=== PATIENT | female | born 1960 | race Caucasian/White ===

== ENCOUNTER 2016-09-15 11:27 | Emergency (ER) | payer MEDICAID ==
[2016-09-15] MEDS ORDERED: DEXAMETHASONE 10 MG/ML VIAL PO STA (12:14)
[2016-09-15] MEDS ORDERED: HYDROcod/ACETAM 5/325 MG TABLET PO STA (12:14)
[2016-09-15] MEDS ORDERED: METHOCARBAMOL 500 MG TABLET PO STA (12:14)
[2016-09-15] MEDS ORDERED: CHERRY SYRUP 10 ML UDC PO ONE (12:19)
[2016-09-15] MEDS ORDERED: HYDROcod/ACETAM 5/325 MG TABLET ONE (12:19)
[2016-09-15] MEDS ORDERED: METHOCARBAMOL 500 MG TABLET PO ONE (12:19)
[2016-09-15] MEDS ORDERED: DEXAMETHASONE 10 MG/ML VIAL ONE (12:20)
== END 2016-09-15 12:38 | disposition home or self-care (01) ==
DX: M54.5 Low back pain (principal); G89.29 Other chronic pain; F17.200 Nicotine dependence, unspecified, uncomplicated
CPT/HCPCS: 99283; A9270

== ENCOUNTER 2016-12-15 13:13 | Emergency (ER) | payer MEDICAID ==
[2016-12-15] MEDS ORDERED: KETOROLAC 60 MG/2 ML VIAL IM STA (13:37)
--- NOTE | 2016-12-15 13:40 | ED Physician Documentation ---
PD HPI BACK INJURY - Stated complaint Stated Complaint: BACK PAIN - History obtained from History obtained from: Patient - History of Present Illness Type of injury: Other (She has chronic unchanged back pain in the lower lumbar spine radiating to the right and down the back of the right leg. She is on disability because of it. She is in the process of switching doctors, because "were not getting along." She is out of her pain medication, she was taking Vicodin a few times a day. She requests a prescription for same until she can see her new doctor in 6 days. There is no weakness or numbness but she does have tingling down the lateral side of the right leg which is not new, no saddle anesthesia or fevers.) Review of Systems Constitutional: reports: Fatigue (From poor sleep). 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 - Present Medications Home Medications: Ambulatory Orders Medication Instructions Recorded Confirmed Pantoprazole [Protonix] 40 mg PO DAILY 07/03/15 12/15/16 Albuterol Sulfate [Proair Hfa 0 mg INH .FREQ 09/15/16 12/15/16 Inhaler] Hydrocodone/Acetaminophen [[place] 1 each PO TID #25 tablet 09/15/16 12/15/16 10-325 Tablet] PARoxetine [Paxil] 0 mg PO .FREQ 09/15/16 12/15/16 Beclomethasone 40 Mcg [Qvar 40] 1 puffs PO DAILY 12/15/16 12/15/16 Cyclobenzaprine [Flexeril] 10 mg PO TID PRN #20 tablet 12/15/16 Meloxicam [Mobic] 7.5 mg PO BIDWM PRN #15 tablet 12/15/16 - Allergies Allergies/Adverse Reactions: Allergies Allergy/AdvReac Type Severity Reaction Status Date / Time oxycodone AdvReac Nausea Verified 09/15/16 11:32 - Social History Does the pt smoke?: Yes Smoking Status: Current every day smoker Does the pt drink ETOH?: No Does the pt have substance abuse?: No PD ED PE NORMAL - Vitals Vital signs reviewed: Yes - General General: Alert and oriented X 3, No acute distress - Back Back: No CVA TTP, No spinal TTP - Extremities Extremities: Other (She has diminished sensation in the right L5 distribution associated with a diminished Achilles reflex there, but symmetric and normal patellar reflexes.) - Neuro Neuro: Alert and oriented X 3, Normal speech Results - Vitals Vitals: Vital Signs - 24 hr 12/15/16 13:14 Temperature 36.9 C Heart Rate 99 Respiratory 18 Rate Blood Pressure 123/75 O2 Saturation 96 Oxygen O2 Source Room air PD MEDICAL DECISION MAKING - ED course ED course: 56-year-old woman with chronic back pain presents for a refill as she is between doctors. She was in pain management with a controlled substance agreement from her prior provider. Discussed with her that it is not appropriate for the emergency department to refill or distribute narcotics for chronic pain. She was administered Toradol here. The patient has no "red flags." Specifically denies IV drug use, fevers, incontinence, saddle anesthesia. Spinal epidural abscess was considered, given that the patient has no fever, is not diabetic, has no spinal tenderness, does not use IV drugs, and has no bilateral neurologic symptoms, the diagnosis of spinal epidural abscess is considered exceedingly unlikely. Departure - Departure Disposition: 01 Home, Self Care Clinical Impression: Chronic low back pain Qualifiers: Back pain laterality: right Sciatica presence: with sciatica Sciatica laterality: sciatica of right side Qualified Code(s): M54.41 - Lumbago with sciatica, right side; G89.29 - Other chronic pain Condition: Good Record reviewed to determine appropriate education?: Yes Instructions: ED Low Back Pain Injury Prescriptions: Cyclobenzaprine [Flexeril] 10 mg PO TID PRN #20 tablet PRN Reason: Pain Meloxicam [Mobic] 7.5 mg PO BIDWM PRN #15 tablet PRN Reason: Pain Comments: It is not appropriate for the Emergency Dept to treat chronic pain with narcotic pain medications. I encourage you to follow up with your primary care physician or to establish care with a primary care physician for ongoing pain management. You are always welcome to seek emergency care here for this or new issues but there will likely be limitations in the prescription of narcotic pain medication.
[2016-12-15] MEDS ORDERED: KETOROLAC 60 MG/2 ML VIAL ONE (13:42)
[2016-12-15 14:03] VITALS: BP 111/74
== END 2016-12-15 14:01 | disposition home or self-care (01) ==
LOC: ED 13:13
DX: M54.41 Lumbago with sciatica, right side (principal); G89.29 Other chronic pain; F17.200 Nicotine dependence, unspecified, uncomplicated
CPT/HCPCS: 96372; 99283

== ENCOUNTER 2017-05-30 12:37 | Outpatient (CLI) | payer MEDICAID ==
[2017-05-30 19:04] LABS: ALBUMIN/GLOBULIN RATIO 1.4 (1.0-2.2); BILIRUBIN,TOTAL 0.6 mg/dL (0.2-1.0); BUN - BLOOD UREA NITROGEN 7 mg/dL (6-20); CALCIUM 8.9 mg/dL (8.5-10.3); CARBON DIOXIDE - CO2 23 mmol/L (21-32); CHLORIDE 101 mmol/L (101-111); CHOL/HDL RATIO 5.1 (<4.4); CHOLESTEROL 330 mg/dL; CREATININE 0.8 mg/dL (0.4-1.0); GFR - MDRD 74 (>89); GLUCOSE 83 mg/dL (70-100); HDL CHOLESTEROL 65 mg/dL; LDL/HDL RATIO 3.5 (<4.4); POTASSIUM 3.9 mmol/L (3.5-5.0); SODIUM 133 mmol/L (135-145); TOTAL PROTEIN 7.9 g/dL (6.7-8.2); TRIGLYCERIDES 182 mg/dL; VLDL CHOLESTEROL 36 mg/dL
[2017-05-30 19:25] LABS: BASOPHILS # (AUTO) 0.1 10^3/uL (0.0-0.1); BASOPHILS % (AUTO) 1.1 %; EOSINOPHILS # (AUTO) 0.2 10^3/uL (0.0-0.7); EOSINOPHILS % (AUTO) 2.6 %; HCT - HEMATOCRIT 45.8 % (37.0-47.0); HGB - HEMOGLOBIN 15.7 g/dL (12.0-16.0); LYMPHOCYTES # (AUTO) 2.2 10^3/uL (1.5-3.5); LYMPHOCYTES % (AUTO) 24.3 %; MEAN CORPUSCULAR HEMOGLOBIN 32.1 pg (27.0-31.0); MEAN CORPUSCULAR HGB CONC 34.2 g/dL (32.0-36.0); MEAN PLATELET VOLUME 8.1 fL (7.9-10.8); MONOCYTES # (AUTO) 0.8 10^3/uL (0.0-1.0); MONOCYTES % (AUTO) 8.8 %; NEUTROPHILS # (AUTO) 5.6 10^3/uL (1.5-6.6); NEUTROPHILS % (AUTO) 63.2 %; NUCLEATED RED BLOOD CELLS AUTO 0.1 /100WBC; RED BLOOD COUNT 4.87 10^6/uL (4.20-5.40); RED CELL DISTRIBUTION WIDTH 12.2 % (12.0-15.0); UNCORRECTED WHITE BLOOD COUNT 8.8 x10^3/uL; WHITE BLOOD COUNT 8.8 x10^3/uL (4.8-10.8)
== END 2017-05-30 12:38 | disposition home or self-care (01) ==
LOC: LAB.F 12:37
PROVIDERS: ATTEND Family Medicine
DX: D53.1 Other megaloblastic anemias, not elsewhere classified (principal); Z13.220 Encounter for screening for lipoid disorders; K21.9 Gastro-esophageal reflux disease without esophagitis
CPT/HCPCS: 36415; 80053; 80061; 82306; 84443; 85025

== ENCOUNTER 2018-02-08 12:28 | Outpatient (CLI) | payer MEDICARE ==
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
== END 2018-02-08 12:29 | disposition home or self-care (01) ==
LOC: DI 12:28
PROVIDERS: ATTEND Internal Medicine
DX: M79.672 Pain in left foot (principal)

== ENCOUNTER 2018-07-06 14:01 | Outpatient (CLI) | payer MEDICARE | END 2018-07-06 14:02 | disposition short-term general hospital (02) | LOC: EMS 14:01 | PROVIDERS: ATTEND Surgery | DX: R10.10 Upper abdominal pain, unspecified (principal); R19.7 Diarrhea, unspecified; R42 Dizziness and giddiness; R53.1 Weakness | CPT/HCPCS: A0170; A0425; A0429 ==

== ENCOUNTER 2018-07-08 14:34 | Outpatient (CLI) | payer MEDICARE | END 2018-07-08 14:35 | disposition critical access hospital (66) | LOC: EMS 14:34 | PROVIDERS: ATTEND Surgery | DX: S31.103A Unspecified open wound of abdominal wall, right lower quadrant without penetration into peritoneal cavity, initial encounter (principal); S11.91XA Laceration without foreign body of unspecified part of neck, initial encounter; W26.0XXA Contact with knife, initial encounter; Y92.038 Other place in apartment as the place of occurrence of the external cause | CPT/HCPCS: A0425; A0427 ==

== ENCOUNTER 2018-07-08 15:12 | Emergency (ER) | payer MEDICARE ==
[2018-07-08 16:01] LABS: BASOPHILS # (AUTO) 0.1 10^3/uL (0.0-0.1); BASOPHILS % (AUTO) 1.1 %; EOSINOPHILS % (AUTO) 0.4 %; HGB - HEMOGLOBIN 15.9 g/dL (12.0-16.0); LYMPHOCYTES # (AUTO) 1.3 10^3/uL (1.5-3.5); MEAN CORPUSCULAR HEMOGLOBIN 31.7 pg (27.0-31.0); MEAN CORPUSCULAR VOLUME 93.3 fL (81.0-99.0); MEAN PLATELET VOLUME 7.7 fL (7.9-10.8); MONOCYTES # (AUTO) 1.3 10^3/uL (0.0-1.0); MONOCYTES % (AUTO) 11.2 %; NEUTROPHILS # (AUTO) 8.8 10^3/uL (1.5-6.6); NEUTROPHILS % (AUTO) 76.3 %; PLT - PLATELET COUNT 279 10^3/uL (130-450); WHITE BLOOD COUNT 11.6 x10^3/uL (4.8-10.8)
[2018-07-08] MEDS ORDERED: TETANUS/DIPHTHERIA/PERTUSSIS 0.5 ML SYRINGE IM ONE (16:11)
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
[2018-07-08 16:13] LABS: MUDS CUTOFF CONCENTRATIONS CUTOFF CONC BELOW:
[2018-07-08 16:15] LABS: ACETAMINOPHEN < 10 ug/mL (10-30); ALBUMIN 4.1 g/dL (3.2-5.5); ALBUMIN/GLOBULIN RATIO 1.3 (1.0-2.2); ALKALINE PHOSPHATASE 101 IU/L (42-121); ALT ALANINE AMINOTRANSFERASE 18 IU/L (10-60); AST ASPARTATE AMINOTRANSFERASE 15 IU/L (10-42); BILIRUBIN,TOTAL 0.8 mg/dL (0.2-1.0); BUN - BLOOD UREA NITROGEN 10 mg/dL (6-20); CALCIUM 9.3 mg/dL (8.5-10.3); CARBON DIOXIDE - CO2 25 mmol/L (21-32); CHLORIDE 101 mmol/L (101-111); CREATININE 0.9 mg/dL (0.4-1.0); GFR - MDRD 64 (>89); GLUCOSE 68 mg/dL (70-100); LIPASE 21 U/L (22-51); SALICYLATE < 6.0 mg/dL; SODIUM 142 mmol/L (135-145); TOTAL PROTEIN 7.3 g/dL (6.7-8.2)
[2018-07-08 16:17] LABS: BILIRUBIN,URINE NEGATIVE (NEGATIVE); GLUCOSE, URINE (UA) NEGATIVE (NEGATIVE); KETONES,URINE (UA) TRACE mg/dL (NEGATIVE); LEUKOCYTE ESTERASE, URINE NEGATIVE (NEGATIVE); NITRITE,URINE NEGATIVE (NEGATIVE); OCCULT BLOOD,URINE NEGATIVE (NEGATIVE); PROTEIN,URINE NEGATIVE (NEGATIVE); UROBILINOGEN,URINE 0.2 (NORMAL) E.U./dL (NORMAL)
[2018-07-08] MEDS ORDERED: IOVERSOL 320 100 ML VIAL IVP ONE ×2 (16:17→16:52)
[2018-07-08 16:33] LABS: CLARITY,URINE CLEAR (CLEAR)
[2018-07-08 16:36] LABS: AMPHETAMINE SCREEN,URINE NEGATIVE (NEGATIVE); BENZODIAZEPINES SCREEN, URINE NEGATIVE (NEGATIVE); COCAINE SCREEN URINE NEGATIVE (NEGATIVE); METHADONE SCREEN, URINE NEGATIVE (NEGATIVE); METHAMPHETAMINES SCREEN, URINE POSITIVE (NEGATIVE); OPIATE SCREEN, URINE POSITIVE (NEGATIVE); OXYCODONE SCREEN, URINE NEGATIVE (NEGATIVE); PROPOXYPHENE SCREEN, URINE NEGATIVE (NEGATIVE); TRICYCLIC ANTIDEPRESSANT,URINE NEGATIVE (NEGATIVE)
--- NOTE | 2018-07-08 17:06 | CT Report ---
Reason: altered Procedure Date: 07/08/2018 Accession Number: [id number] / [id number] Procedure: CT - Head W/O CPT Code: FULL RESULT: EXAM: CT HEAD EXAM DATE: 07/08/2018 04:20 PM. CLINICAL HISTORY: Altered mental status. COMPARISON: None. TECHNIQUE: Multiaxial CT images were obtained from the foramen magnum to the vertex. Reformats: Sagittal and coronal. IV contrast: None. In accordance with CT protocol optimization, one or more of the following dose reduction techniques were utilized for this exam: automated exposure control, adjustment of mA and/or KV based on patient size, or use of iterative reconstructive technique. FINDINGS: Parenchyma: The overall harper-white matter differentiation is preserved. No intracranial hemorrhage demonstrated. No evidence of mass or mass-effect. Extraaxial Spaces: Within normal limits. No subdural or epidural collections identified. Ventricles: Size and position are within normal limits. Basal cisterns are patent. Sinuses and Orbits: Imaged paranasal sinuses, orbits, and mastoids show no significant abnormality. Bones: No evidence of fracture or calvarial defect. Other: None. IMPRESSION: No acute intracranial abnormality. RADIA
[2018-07-08] MEDS ORDERED: POTASSIUM BICARB 25 MEQ TABLET PO STA (17:17)
[2018-07-08] MEDS ORDERED: BUFFERED LIDOCAINE 10 ML SYRINGE SUBQ STA (17:18)
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
[2018-07-08] MEDS ORDERED: OLANZapine 10 MG VIAL IM STA (21:31)
[2018-07-08] MEDS ORDERED: LORazepam 2 MG/ML VIAL IM STA (21:31)
[2018-07-08] MEDS ORDERED: LORazepam 0.5 MG TABLET PO STA (23:08)
[2018-07-08] MEDS ORDERED: HALOPERIDOL 1 MG TABLET PO SCH (23:45)
[2018-07-09] MEDS ORDERED: LORazepam 0.5 MG TABLET PO STA (02:28)
[2018-07-09] MEDS ORDERED: POTASSIUM BICARB 25 MEQ TABLET PO STA (07:06)
--- NOTE | 2018-07-09 09:26 | ED Physician Documentation ---
ED Addendum - Addendum Addendum: 07/09/18 09:25 The patient is awake and ambulatory. She still has somewhat confused but does know she is in the hospital. She asked if it was [place] or [place] and was told it was [place]. She is still a little bit anxious and needs redirection. There is tangentiality in her thought process. The overnight physicians had she did get some medication to help with sleep in the late night but has not had any medication this morning. Blood sugar check showed it to be 70 and she was given some juice and then has subsequently had breakfast. She was given a repeat dose of potassium supplement for the level of 2.9 yesterday. Social work was then seen her and feels that the patient should be evaluated by the DCR. I did fill out the attestation form for the [facility].
[2018-07-09] MEDS ORDERED: HALOPERIDOL 1 MG TABLET PO STA (22:33)
[2018-07-10 09:50] VITALS: BP 125/86
== END 2018-07-10 09:30 ==
LOC: EDUNIT# → ED 15:12
DX: F29 Unspecified psychosis not due to a substance or known physiological condition (principal); R41.82 Altered mental status, unspecified; S31.119A Laceration without foreign body of abdominal wall, unspecified quadrant without penetration into peritoneal cavity, initial encounter; S11.91XA Laceration without foreign body of unspecified part of neck, initial encounter; Y28.9XXA Contact with unspecified sharp object, undetermined intent, initial encounter; F17.200 Nicotine dependence, unspecified, uncomplicated; Z23 Encounter for immunization
CPT/HCPCS: 12001; 36415; 70450; 74177; 80053; 81003; 83690; 84443; 85025; 90471; 90715; 96372; 99285; A9270; J2060; Q9967; 80306; 80307; 80320; 80329; 81001; 87086

== ENCOUNTER 2018-08-12 16:41 | Outpatient (CLI) | payer MEDICARE | END 2018-08-12 16:42 | disposition short-term general hospital (02) | LOC: EMS 16:41 | PROVIDERS: ATTEND Surgery | DX: T50.904A Poisoning by unspecified drugs, medicaments and biological substances, undetermined, initial encounter (principal) | CPT/HCPCS: A0425; A0427 ==

== ENCOUNTER 2018-09-05 12:14 | Outpatient (CLI) | payer MEDICARE | END 2018-09-05 12:15 | disposition critical access hospital (66) | LOC: EMS 12:14 | PROVIDERS: ATTEND Surgery | DX: R42 Dizziness and giddiness (principal); R63.0 Anorexia; R10.9 Unspecified abdominal pain; R06.02 Shortness of breath; R11.0 Nausea; R19.7 Diarrhea, unspecified; J44.9 Chronic obstructive pulmonary disease, unspecified; F17.201 Nicotine dependence, unspecified, in remission; F32.9 Major depressive disorder, single episode, unspecified | CPT/HCPCS: A0425; A0429 ==

== ENCOUNTER 2018-09-05 12:49 | Emergency (ER) | payer MEDICARE ==
[2018-09-05] MEDS ORDERED: SODIUM CHLORIDE 0.9% 1,000 ML IV ONE (13:04)
[2018-09-05] MEDS ORDERED: ONDANSETRON 4 MG/2 ML VIAL IVP STA (13:04)
[2018-09-05] MEDS ORDERED: LORazepam 2 MG/ML VIAL IVP STA (13:04)
[2018-09-05 13:22] LABS: BASOPHILS # (AUTO) 0.1 10^3/uL (0.0-0.1); BASOPHILS % (AUTO) 1.2 %; EOSINOPHILS # (AUTO) 0.1 10^3/uL (0.0-0.7); EOSINOPHILS % (AUTO) 0.6 %; HGB - HEMOGLOBIN 14.6 g/dL (12.0-16.0); LYMPHOCYTES # (AUTO) 1.3 10^3/uL (1.5-3.5); LYMPHOCYTES % (AUTO) 14.1 %; MEAN CORPUSCULAR HEMOGLOBIN 31.3 pg (27.0-31.0); MEAN CORPUSCULAR HGB CONC 34.3 g/dL (32.0-36.0); MEAN CORPUSCULAR VOLUME 91.1 fL (81.0-99.0); MEAN PLATELET VOLUME 7.8 fL (7.9-10.8); MONOCYTES # (AUTO) 0.8 10^3/uL (0.0-1.0); MONOCYTES % (AUTO) 8.8 %; NEUTROPHILS % (AUTO) 75.3 %; PLT - PLATELET COUNT 299 10^3/uL (130-450); RED BLOOD COUNT 4.67 10^6/uL (4.20-5.40); RED CELL DISTRIBUTION WIDTH 13.3 % (12.0-15.0); WHITE BLOOD COUNT 9.3 x10^3/uL (4.8-10.8)
--- NOTE | 2018-09-05 13:31 | ED Physician Documentation ---
History of Present Illness - Stated complaint Stated Complaint: LOSS OF APPETITE - Chief complaint Chief Complaint: General - Additonal information Additional information: 58-year-old female presents the emergency department for evaluation of general fatigue and loss of appetite. The patient reports having diarrhea which has made her have no appetite because every time she eats she reports having diarrhea. The patient also reports cough, nasal congestion. The patient denied any abdominal pain. The patient is quite upset during the evaluation. Symptoms are described as moderate. No relieving factors. The symptoms have been ongoing for the past 5 days Review of Systems Constitutional: reports: Fatigue. denies: Fever, Chills Eyes: denies: Discharge Ears: denies: Ear pain Nose: denies: Congestion Throat: denies: Sore throat Cardiac: denies: Chest pain / pressure Respiratory: reports: Cough. denies: Dyspnea GI: reports: Diarrhea. denies: Nausea, Vomiting : denies: Hematuria Skin: denies: Rash Musculoskeletal: denies: Neck pain Neurologic: reports: Generalized weakness. 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 - Present Medications Home Medications: Ambulatory Orders Medication Instructions Recorded Confirmed Pantoprazole [Protonix] 40 mg PO DAILY 07/03/15 12/15/16 Albuterol Sulfate [Proair Hfa 0 mg INH .FREQ 09/15/16 12/15/16 Inhaler] PARoxetine [Paxil] 0 mg PO .FREQ 09/15/16 12/15/16 Beclomethasone 40 Mcg [Qvar 40] 1 puffs PO DAILY 12/15/16 12/15/16 Meloxicam [Mobic] 7.5 mg PO BIDWM PRN #15 tablet 12/15/16 Albuterol Sulf [Ventolin Hfa 1 - 2 puffs INH Q4HR PRN #1 inhaler 09/05/18 Inhaler] Doxycycline Hyclate 100 mg PO BID #20 capsule 09/05/18 Ondansetron HCl [Zofran] 4 mg PO Q6HR PRN #30 tablet 09/05/18 - Allergies Allergies/Adverse Reactions: Allergies Allergy/AdvReac Type Severity Reaction Status Date / Time oxycodone AdvReac Nausea Verified 09/05/18 13:09 - Social History Does the pt smoke?: Yes Smoking Status: Current every day smoker Does the pt drink ETOH?: No Does the pt have substance abuse?: No - Immunizations Immunizations are current?: No Immunizations: TDAP >10years/unknown PD ED PE NORMAL - General General: Alert and oriented X 3 - HEENT HEENT: Atraumatic, PERRL, EOMI, Ears normal - Neck Neck: Supple, no meningeal sign - Cardiac Cardiac: RRR, Strong equal pulses - Respiratory Respiratory: No respiratory distress - Abdomen Abdomen: Soft, Non tender, Non distended - Derm Derm: Normal color - Extremities Extremities: No deformity - Neuro Neuro: Alert and oriented X 3, Normal speech - Psych Psych: Normal affect Results - Vitals Vitals: Vital Signs - 24 hr 09/05/18 09/05/18 12:52 14:00 Temperature 36 C L Heart Rate 102 H 97 Respiratory 18 12 Rate Blood Pressure 150/92 H 140/80 H O2 Saturation 96 92 Oxygen O2 Source Room air - EKG (time done) 13:30 Rate: Rate (enter#) Rhythm: Sinus tachycardia [place]: Normal Intervals: Normal IN QRS: Normal Ischemia: Normal ST segments - Labs Labs: Laboratory Tests 09/05/18 09/05/18 09/05/18 13:10 13:10 13:10 WBC 9.3 RBC 4.67 Hgb 14.6 Hct 42.6 MCV 91.1 MCH 31.3 H MCHC 34.3 RDW 13.3 Plt Count 299 MPV 7.8 L Neut # (Auto) 7.0 H Lymph # (Auto) 1.3 L [place] # (Auto) 0.8 Eos # (Auto) 0.1 Baso # (Auto) 0.1 Absolute Nucleated RBC 0.00 Nucleated RBC % 0.0 Sodium 132 L Potassium 3.8 Chloride 99 L Carbon Dioxide 16 L Anion Gap 17.0 H BUN 18 Creatinine 0.7 Estimated GFR (MDRD) 85 L Glucose 78 Calcium 8.9 Total Bilirubin 1.6 H AST 19 ALT 17 Alkaline Phosphatase 118 Total Creatine Kinase 107 Troponin I < 0.04 Total Protein 8.0 Albumin 4.6 Globulin 3.4 Albumin/Globulin Ratio 1.4 Lipase 23 TSH Urine Color Urine Clarity Urine pH Ur Specific [place] Urine Protein Urine Glucose (UA) Urine Ketones Urine Occult Blood Urine Nitrite Urine Bilirubin Urine Urobilinogen Ur Leukocyte Esterase Ur Microscopic Review Urine Culture Comments Salicylates < 6.0 Urine Opiates Screen Ur Oxycodone Screen Urine Methadone Screen Ur Propoxyphene Screen Acetaminophen < 10 L Ur Barbiturates Screen Ur Tricyclics Screen Ur Phencyclidine Scrn Ur Amphetamine Screen U Methamphetamines Scrn U Benzodiazepines Scrn Urine Cocaine Screen U Cannabinoids Screen Ethyl Alcohol < 5.0 09/05/18 09/05/18 13:10 14:27 WBC RBC Hgb Hct MCV MCH MCHC RDW Plt Count MPV Neut # (Auto) Lymph # (Auto) [place] # (Auto) Eos # (Auto) Baso # (Auto) Absolute Nucleated RBC Nucleated RBC % Sodium Potassium Chloride Carbon Dioxide Anion Gap BUN Creatinine Estimated GFR (MDRD) Glucose Calcium Total Bilirubin AST ALT Alkaline Phosphatase Total Creatine Kinase Troponin I Total Protein Albumin Globulin Albumin/Globulin Ratio Lipase TSH 1.88 Urine Color YELLOW Urine Clarity CLEAR Urine pH 5.5 Ur Specific [place] 1.020 Urine Protein NEGATIVE Urine Glucose (UA) NEGATIVE Urine Ketones >=80 H Urine Occult Blood NEGATIVE Urine Nitrite NEGATIVE Urine Bilirubin NEGATIVE Urine Urobilinogen 0.2 (NORMAL) Ur Leukocyte Esterase NEGATIVE Ur Microscopic Review NOT INDICATED Urine Culture Comments NOT INDICATED Salicylates Urine Opiates Screen NEGATIVE Ur Oxycodone Screen NEGATIVE Urine Methadone Screen NEGATIVE Ur Propoxyphene Screen NEGATIVE Acetaminophen Ur Barbiturates Screen NEGATIVE Ur Tricyclics Screen NEGATIVE Ur Phencyclidine Scrn NEGATIVE Ur Amphetamine Screen NEGATIVE U Methamphetamines Scrn NEGATIVE U Benzodiazepines Scrn NEGATIVE Urine Cocaine Screen NEGATIVE U Cannabinoids Screen NEGATIVE Ethyl Alcohol - Rads (name of study) CXR Radiology: Final report received, See rad report PD MEDICAL DECISION MAKING - ED course ED course: On reevaluation the patient is resting comfortably and appears to be in no acute distress. The patient was up walking around in the emergency department. The patient appears well-hydrated, nontoxic and well-appearing. Clinically there is no evidence of sepsis. The patient does have pneumonia but appears appropriate for discharge and ongoing outpatient management. This may be the etiology of the patient's symptoms. I discussed the findings and plan with the patient who understands and agrees. I advise close follow-up with primary care for recheck and reevaluation. The patient will return to the emergency department for any worsening or any concerns Departure - Departure Disposition: Home, Self Care Clinical Impression: Weakness, Loss of appetite Pneumonia Qualifiers: Pneumonia type: due to unspecified organism Laterality: unspecified laterality Lung location: unspecified part of lung Qualified Code(s): J18.9 - Pneumonia, unspecified organism Diarrhea Qualifiers: Diarrhea type: unspecified type Qualified Code(s): R19.7 - Diarrhea, unspecified Condition: Good Instructions: Pneumonia Dc, ED Diet Vomiting Diarrhea, ED Weakness [facility] Follow-Up: Claudy Singh MD [Primary Care Provider] - Within 1 week Prescriptions: Albuterol Sulf [Ventolin Hfa Inhaler] 1 - 2 puffs INH Q4HR PRN #1 inhaler PRN Reason: Shortness Of Air/Wheezing Ondansetron HCl [Zofran] 4 mg PO Q6HR PRN #30 tablet PRN Reason: Nausea / Vomiting Doxycycline Hyclate 100 mg PO BID #20 capsule Comments: Please return to the emergency department for any worsening or any concerns
[2018-09-05 13:33] LABS: ACETAMINOPHEN < 10 ug/mL (10-30); ALBUMIN 4.6 g/dL (3.2-5.5); ALBUMIN/GLOBULIN RATIO 1.4 (1.0-2.2); ALKALINE PHOSPHATASE 118 IU/L (42-121); ALT ALANINE AMINOTRANSFERASE 17 IU/L (10-60); AST ASPARTATE AMINOTRANSFERASE 19 IU/L (10-42); BILIRUBIN,TOTAL 1.6 mg/dL (0.2-1.0); BUN - BLOOD UREA NITROGEN 18 mg/dL (6-20); CALCIUM 8.9 mg/dL (8.5-10.3); CARBON DIOXIDE - CO2 16 mmol/L (21-32); CHLORIDE 99 mmol/L (101-111); CK- CREATINE KINASE 107 IU/L (22-269); CREATININE 0.7 mg/dL (0.4-1.0); GFR - MDRD 85 (>89); GLUCOSE 78 mg/dL (70-100); LIPASE 23 U/L (22-51); SALICYLATE < 6.0 mg/dL; SODIUM 132 mmol/L (135-145)
--- NOTE | 2018-09-05 13:41 | XRAY Report ---
Reason: weak Procedure Date: 09/05/2018 Accession Number: [id number] / [id number] Procedure: XR - Chest 1 View X-Ray CPT Code: 70135 FULL RESULT: EXAM: CHEST RADIOGRAPHY EXAM DATE: 09/05/2018 01:26 PM. CLINICAL HISTORY: Weak. COMPARISON: XR ACUTE ABDOMEN SERIES 08/27/2006 1:58 PM. TECHNIQUE: 1 view. FINDINGS: Lungs/Pleura: Right medial lung base infiltrate and linear atelectasis. No effusion. Normal lung volumes. Mediastinum: Heart size normal. Mildly ectatic aorta with calcifications Other: None. IMPRESSION: Right medial lung base infiltrate RADIA
[2018-09-05 14:31] LABS: MUDS CUTOFF CONCENTRATIONS CUTOFF CONC BELOW:
[2018-09-05 14:35] LABS: GLUCOSE, URINE (UA) NEGATIVE (NEGATIVE); KETONES,URINE (UA) >=80 mg/dL (NEGATIVE); LEUKOCYTE ESTERASE, URINE NEGATIVE (NEGATIVE); NITRITE,URINE NEGATIVE (NEGATIVE); OCCULT BLOOD,URINE NEGATIVE (NEGATIVE); PH,URINE 5.5 PH (5.0-7.5); PROTEIN,URINE NEGATIVE (NEGATIVE); UROBILINOGEN,URINE 0.2 (NORMAL) E.U./dL (NORMAL)
[2018-09-05 14:39] LABS: BILIRUBIN,URINE NEGATIVE (NEGATIVE); CLARITY,URINE CLEAR (CLEAR); ICTOTEST,URINE NEGATIVE
[2018-09-05 14:49] LABS: AMPHETAMINE SCREEN,URINE NEGATIVE (NEGATIVE); BENZODIAZEPINES SCREEN, URINE NEGATIVE (NEGATIVE); COCAINE SCREEN URINE NEGATIVE (NEGATIVE); METHADONE SCREEN, URINE NEGATIVE (NEGATIVE); METHAMPHETAMINES SCREEN, URINE NEGATIVE (NEGATIVE); OPIATE SCREEN, URINE NEGATIVE (NEGATIVE); OXYCODONE SCREEN, URINE NEGATIVE (NEGATIVE); PROPOXYPHENE SCREEN, URINE NEGATIVE (NEGATIVE); TRICYCLIC ANTIDEPRESSANT,URINE NEGATIVE (NEGATIVE)
[2018-09-05] MEDS ORDERED: DOXYCYCLINE 100 MG TABLET PO STA (15:10)
[2018-09-05 15:41] VITALS: BP 141/73
== END 2018-09-05 15:41 | disposition home or self-care (01) ==
LOC: ED 12:49
DX: J18.9 Pneumonia, unspecified organism (principal); R19.7 Diarrhea, unspecified; R53.1 Weakness; F50.89 Other specified eating disorder; R00.0 Tachycardia, unspecified; F17.200 Nicotine dependence, unspecified, uncomplicated
CPT/HCPCS: 36415; 71045; 81003; 82550; 83690; 84484; 93005; 96374; 99283; A9270; J2060; 80053; 80306; 80307; 80320; 80329; 81001; 84443; 85025; 87086

== ENCOUNTER 2018-10-12 10:29 | Emergency (ER) | payer MEDICARE ==
[2018-10-12 11:12] LABS: MUDS CUTOFF CONCENTRATIONS CUTOFF CONC BELOW:
[2018-10-12 11:13] LABS: GLUCOSE, URINE (UA) NEGATIVE (NEGATIVE); KETONES,URINE (UA) >=80 mg/dL (NEGATIVE); LEUKOCYTE ESTERASE, URINE NEGATIVE (NEGATIVE); NITRITE,URINE NEGATIVE (NEGATIVE); OCCULT BLOOD,URINE NEGATIVE (NEGATIVE); PROTEIN,URINE TRACE mg/dL (NEGATIVE); UROBILINOGEN,URINE 0.2 (NORMAL) E.U./dL (NORMAL)
[2018-10-12 11:16] LABS: BILIRUBIN,URINE NEGATIVE (NEGATIVE); CLARITY,URINE CLEAR (CLEAR); ICTOTEST,URINE NEGATIVE
[2018-10-12 11:17] LABS: HCG UR QUAL NEGATIVE
[2018-10-12 11:25] LABS: AMPHETAMINE SCREEN,URINE NEGATIVE (NEGATIVE); BENZODIAZEPINES SCREEN, URINE NEGATIVE (NEGATIVE); COCAINE SCREEN URINE NEGATIVE (NEGATIVE); METHADONE SCREEN, URINE NEGATIVE (NEGATIVE); METHAMPHETAMINES SCREEN, URINE NEGATIVE (NEGATIVE); OPIATE SCREEN, URINE NEGATIVE (NEGATIVE); OXYCODONE SCREEN, URINE NEGATIVE (NEGATIVE); PROPOXYPHENE SCREEN, URINE NEGATIVE (NEGATIVE); TRICYCLIC ANTIDEPRESSANT,URINE NEGATIVE (NEGATIVE)
[2018-10-12 11:36] LABS: BASOPHILS % (AUTO) 0.5 %; EOSINOPHILS % (AUTO) 0.2 %; HGB - HEMOGLOBIN 14.7 g/dL (12.0-16.0); LYMPHOCYTES % (AUTO) 12.6 %; MEAN CORPUSCULAR HEMOGLOBIN 30.2 pg (27.0-31.0); MEAN CORPUSCULAR HGB CONC 33.2 g/dL (32.0-36.0); MEAN CORPUSCULAR VOLUME 90.9 fL (81.0-99.0); MEAN PLATELET VOLUME 7.6 fL (7.9-10.8); MONOCYTES # (AUTO) 0.6 10^3/uL (0.0-1.0); MONOCYTES % (AUTO) 7.2 %; NEUTROPHILS # (AUTO) 6.5 10^3/uL (1.5-6.6); NEUTROPHILS % (AUTO) 79.5 %; PLT - PLATELET COUNT 297 10^3/uL (130-450); RED BLOOD COUNT 4.87 10^6/uL (4.20-5.40); RED CELL DISTRIBUTION WIDTH 13.3 % (12.0-15.0); WHITE BLOOD COUNT 8.2 x10^3/uL (4.8-10.8)
[2018-10-12 11:53] LABS: ACETAMINOPHEN < 10 ug/mL (10-30); ALBUMIN 4.6 g/dL (3.2-5.5); ALBUMIN/GLOBULIN RATIO 1.3 (1.0-2.2); ALKALINE PHOSPHATASE 102 IU/L (42-121); ALT ALANINE AMINOTRANSFERASE 13 IU/L (10-60); AST ASPARTATE AMINOTRANSFERASE 23 IU/L (10-42); BILIRUBIN,TOTAL 1.1 mg/dL (0.2-1.0); BUN - BLOOD UREA NITROGEN 12 mg/dL (6-20); CALCIUM 9.2 mg/dL (8.5-10.3); CARBON DIOXIDE - CO2 19 mmol/L (21-32); CHLORIDE 101 mmol/L (101-111); CREATININE 0.7 mg/dL (0.4-1.0); GFR - MDRD 85 (>89); GLUCOSE 98 mg/dL (70-100); LIPASE 24 U/L (22-51); SALICYLATE < 6.0 mg/dL; SODIUM 135 mmol/L (135-145); TOTAL PROTEIN 8.1 g/dL (6.7-8.2)
--- NOTE | 2018-10-12 12:06 | ED Physician Documentation ---
PD HPI MHE - Stated complaint Stated Complaint: MHE - Chief complaint Chief Complaint: MHE - History obtained from History obtained from: Patient - History of Present Illness Primary symptom: Anxiety (This is a 58-year-old woman who presents for voluntary mental health evaluation and would like hospitalization for anxiety. She is a vague historian but admits that she was hospitalized at [facility] for about 15 days and was released a few weeks ago. She was on medication at the time, she says they gave her 7 days worth. She does not know what. She is very anxious. She says [place] a 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 - Present Medications Home Medications: Ambulatory Orders Medication Instructions Recorded Confirmed Pantoprazole [Protonix] 40 mg PO DAILY 07/03/15 12/15/16 Albuterol Sulfate [Proair Hfa 0 mg INH .FREQ 09/15/16 12/15/16 Inhaler] PARoxetine [Paxil] 0 mg PO .FREQ 09/15/16 12/15/16 Beclomethasone 40 Mcg [Qvar 40] 1 puffs PO DAILY 12/15/16 12/15/16 Meloxicam [Mobic] 7.5 mg PO BIDWM PRN #15 tablet 12/15/16 Albuterol Sulf [Ventolin Hfa 1 - 2 puffs INH Q4HR PRN #1 inhaler 09/05/18 Inhaler] Doxycycline Hyclate 100 mg PO BID #20 capsule 09/05/18 Ondansetron HCl [Zofran] 4 mg PO Q6HR PRN #30 tablet 09/05/18 - Allergies Allergies/Adverse Reactions: Allergies Allergy/AdvReac Type Severity Reaction Status Date / Time oxycodone AdvReac Nausea Verified 09/05/18 13:09 - Social History Does the pt smoke?: Yes Smoking Status: Current every day smoker Does the pt drink ETOH?: No Does the pt have substance abuse?: No - Family History Family history: reports: Non contributory - Immunizations Immunizations are current?: No Immunizations: TDAP >10years/unknown PD ED PE NORMAL - Vitals Vital signs reviewed: Yes - General General: Alert and oriented X 3, Other (Fairly anxious and shaky) - HEENT HEENT: PERRL, EOMI - Neck Neck: Supple, no meningeal sign, No bony TTP - Cardiac Cardiac: RRR, No murmur - Respiratory Respiratory: No respiratory distress, Clear bilaterally - Abdomen Abdomen: Normal bowel sounds, Soft, Non tender - Back Back: No CVA TTP, No spinal TTP - Derm Derm: Normal color, Warm and dry - Extremities Extremities: No edema, No calf tenderness / cord - Neuro Neuro: Alert and oriented X 3, Normal speech Results - Vitals Vitals: Vital Signs - 24 hr 10/12/18 10/12/18 10:44 12:25 Temperature 36.8 C 37.0 C Heart Rate 112 H 91 Respiratory 14 20 Rate Blood Pressure 144/90 H 138/78 H O2 Saturation 96 97 Oxygen O2 Source Room air - Labs Labs: Laboratory Tests 10/12/18 10/12/18 10/12/18 11:06 11:06 11:18 WBC 8.2 RBC 4.87 Hgb 14.7 Hct 44.3 MCV 90.9 MCH 30.2 MCHC 33.2 RDW 13.3 Plt Count 297 MPV 7.6 L Neut # (Auto) 6.5 Lymph # (Auto) 1.0 L [place] # (Auto) 0.6 Eos # (Auto) 0.0 Baso # (Auto) 0.0 Absolute Nucleated RBC 0.01 Nucleated RBC % 0.1 Sodium Potassium Chloride Carbon Dioxide Anion Gap BUN Creatinine Estimated GFR (MDRD) Glucose Calcium Total Bilirubin AST ALT Alkaline Phosphatase Total Protein Albumin Globulin Albumin/Globulin Ratio Lipase TSH Urine Color YELLOW Urine Clarity CLEAR Urine pH 6.0 Ur Specific [place] >=1.030 H Urine Protein TRACE Urine Glucose (UA) NEGATIVE Urine Ketones >=80 H Urine Occult Blood NEGATIVE Urine Nitrite NEGATIVE Urine Bilirubin NEGATIVE Urine Urobilinogen 0.2 (NORMAL) Ur Leukocyte Esterase NEGATIVE Ur Microscopic Review NOT INDICATED Urine Culture Comments NOT INDICATED Urine HCG, Qual NEGATIVE Salicylates Urine Opiates Screen NEGATIVE Ur Oxycodone Screen NEGATIVE Urine Methadone Screen NEGATIVE Ur Propoxyphene Screen NEGATIVE Acetaminophen Ur Barbiturates Screen NEGATIVE Ur Tricyclics Screen NEGATIVE Ur Phencyclidine Scrn NEGATIVE Ur Amphetamine Screen NEGATIVE U Methamphetamines Scrn NEGATIVE U Benzodiazepines Scrn NEGATIVE Urine Cocaine Screen NEGATIVE U Cannabinoids Screen NEGATIVE Ethyl Alcohol 10/12/18 10/12/18 11:18 11:18 WBC RBC Hgb Hct MCV MCH MCHC RDW Plt Count MPV Neut # (Auto) Lymph # (Auto) [place] # (Auto) Eos # (Auto) Baso # (Auto) Absolute Nucleated RBC Nucleated RBC % Sodium 135 Potassium 3.3 L Chloride 101 Carbon Dioxide 19 L Anion Gap 15.0 H BUN 12 Creatinine 0.7 Estimated GFR (MDRD) 85 L Glucose 98 Calcium 9.2 Total Bilirubin 1.1 H AST 23 ALT 13 Alkaline Phosphatase 102 Total Protein 8.1 Albumin 4.6 Globulin 3.5 Albumin/Globulin Ratio 1.3 Lipase 24 TSH 1.56 Urine Color Urine Clarity Urine pH Ur Specific [place] Urine Protein Urine Glucose (UA) Urine Ketones Urine Occult Blood Urine Nitrite Urine Bilirubin Urine Urobilinogen Ur Leukocyte Esterase Ur Microscopic Review Urine Culture Comments Urine HCG, Qual Salicylates < 6.0 Urine Opiates Screen Ur Oxycodone Screen Urine Methadone Screen Ur Propoxyphene Screen Acetaminophen < 10 L Ur Barbiturates Screen Ur Tricyclics Screen Ur Phencyclidine Scrn Ur Amphetamine Screen U Methamphetamines Scrn U Benzodiazepines Scrn Urine Cocaine Screen U Cannabinoids Screen Ethyl Alcohol < 5.0 PD MEDICAL DECISION MAKING - ED course ED course: 58-year-old woman presents with severe anxiety and potentially some psychosis when you examine her. She is medically clear for psychiatric evaluation. She was seen by social work, there were limited beds available in the area for psychiatric treatment but she was eventually found to bed at [facility] and cobras were completed. Departure - Departure Disposition: 65 Psych Hosp/Unit DC/Xfer Clinical Impression: Anxiety Psychosis Qualifiers: Psychosis type: unspecified psychosis type Qualified Code(s): F29 - Unspecified psychosis not due to a substance or known physiological condition Condition: Stable
[2018-10-12] MEDS ORDERED: LORazepam 1 MG TABLET PO STA ×2 (12:52→16:13)
[2018-10-12] MEDS ORDERED: OLANZapine ODT 5 MG TABLET TL STA (14:26)
[2018-10-12 21:32] VITALS: BP 107/58
== END 2018-10-12 22:07 ==
LOC: ED 10:29
DX: F41.9 Anxiety disorder, unspecified (principal); F17.200 Nicotine dependence, unspecified, uncomplicated; Z59.0 Homelessness
CPT/HCPCS: 36415; 81003; 81025; 83690; 99284; A9270; J8499; 80053; 80306; 80307; 80320; 80329; 81001; 84443; 85025; 87086; 99283

== ENCOUNTER → 2018-12-30 | Outpatient (CLI) | payer MEDICARE | END | disposition short-term general hospital (02) | LOC: EMS 19:09 | PROVIDERS: ATTEND Surgery | DX: R41.82 Altered mental status, unspecified (principal); R11.10 Vomiting, unspecified | CPT/HCPCS: A0425; A0427 ==